=== PATIENT | male | born 1970 | race Caucasian/White ===

== ENCOUNTER 2016-07-02 20:11 | Emergency (ER) | payer BC, MEDICAID ==
[2016-07-02 20:17] VITALS: BP 147/93
--- OUTSIDE RECORDS SUMMARY | 2016-07-02 20:44 | XMS REPORT | Continuity of Care Document ---
:1970 Author Organization [facility] ([facility]) Address [address] [place] [address] Phone [phone] Care Team Providers Name Role Phone Alex Portillo Primary Care Provider [phone] Source Comments This disclosure is being made pursuant to the Care Everywhere program, applicable federal and state laws, and may not contain all informaitonavailable regarding this patient.[facility] ([facility]) Active Allergies and Adverse Reactions No Known Allergies Current Medications Prescription Sig. Disp. Refills Start Date End Date Status fluticasone 50 use 2 Sprays into 1 Bottle 3 10/19/2010 Active mcg/Actuation nasal the nose daily. spray Indications: postnasal drip Active Problems No known active problems Immunizations Name Dates Previously Given Next Due Influenza, PF 12/10/2010 Pneumococcal Polysaccharide, PPSV23 (Pneumovax 23) 12/10/2010 Social History Tobacco Use Types Packs/Day Years Used Date Former Smoker Cigarettes 1 3 Quit: 10/19/2006 Smokeless Tobacco: Former User Chew Quit: 10/19/2006 Alcohol Use Drinks/Week oz/Week Comments No Last Filed Vital Signs Vital Sign Reading Time Taken Blood Pressure 130/80 10/19/2010 3:10 PM CDT Pulse 79 10/19/2010 3:10 PM CDT Temperature 36.4 C (97.5 F) 10/19/2010 3:10 PM CDT Respiratory Rate - - Height 1.654 m (5' 5.12") 10/19/2010 3:10 PM CDT Weight 78.881 kg (173 lb 14.4 oz) 10/19/2010 3:10 PM CDT Body Mass Index 28.83 10/19/2010 3:10 PM CDT Oxygen Saturation - - Plan of Care Health Maintenance Due Date Last Done Comments Hepatitis B Vaccine (1 of 3 - Primary Series) 1970 Tdap Vaccine 07/03/1979 Lipid Disorder Screening 1986 MMR Vaccine 1986 Td Vaccine 1986 Influenza Vaccine: Seasonal (#1) 10/02/2015 12/10/2010 Results from Last 3 Months Not on file
== END 2016-07-02 20:17 | disposition home or self-care (01) ==
LOC: ER 20:11
DX: Z13.6 Encounter for screening for cardiovascular disorders (principal)